=== PATIENT | male | born 1965 | race Caucasian/White ===

== ENCOUNTER → 2025-01-20 | Outpatient (CLI) | payer OTHER, SELFPAY ==
--- NOTE | 2025-01-20 09:16 | US_ITS ---
PROCEDURE: ABD LIMITED W/ ELASTOGRAPHY REASON FOR EXAM: ABNORMAL RESULTS OF LIVER FUNCTION STUDIES COMPARISON: None. TECHNIQUE: Procedure Code: [id number] Modality: US Procedure: ABD LIMITED W/ ELASTOGRAPHY Right upper quadrant abdominal ultrasound. Jessica ElastQ Imaging shear wave elastography for non-invasive assessment of liver tissue stiffness. Jessica EPIQ Elite. FINDINGS: LIVER: Size: Grossly normal in size with homogeneous parenchymal echotexture, measuring 15 cm in length. No discrete focal masses seen within the liver. Elastography: EQI Med: 5.4 kPa EQI Med [place]: 1.3 m/s IQR/Med: 19 %* GALLBLADDER: Echogenic nonshadowing adherent stones versus gallbladder polyps along the gallbladder wall, the largest measuring 0.6 cm. No wall thickening or pericholecystic fluid. COMMON BILE DUCT: Normal measuring up to 0.3 cm in diameter. PANCREAS: Visualized portions are unremarkable. Distal body and tail obscured by gas. Simple appearing exophytic cyst in the right kidney measuring up to 1.8 cm. Otherwise the visualized right kidney is unremarkable, and normal in size. No right upper quadrant ascites is seen. US/ABD Limited w/ Elastography IMPRESSION: 1. Sonographically unremarkable liver; No to mild hepatic fibrosis. 2. Subcentimeter nonshadowing adherent gallstones versus polyps along the gallb ladder wall, the largest measuring up to 0.6 cm. No biliary ductal dilatation. 3. Simple appearing exophytic cyst in the right kidney measuring 1.8 cm. Reference Values: SRU <1.37 m/s (5.7kPa): No to mild fibrosis 1.37 m/s - 2.2 m/s: Moderate to severe fibrosis >2.2 m/s (15kPa): Significant fibrosis / cirrhosis METAVIR Score F2 or higher: 1.34 m/s (5.7kPa) F3 or higher: 1.55 m/s (7.3kPa) F4: 1.80 m/s (10kPa) * If the IQR/Med is >30%, the variance in the measurements is a large and the a ccuracy of the measurement may be in question. Reading Location: [id number]
== END | disposition home or self-care (01) ==
PROVIDERS: PCP Registered Nurse General Practice; Referring Provider Registered Nurse General Practice; Visit Provider Registered Nurse General Practice
DX: R94.5 Abnormal results of liver function studies (principal)
CPT/HCPCS: 76705; 76981